=== PATIENT | male | born 1950 | race Caucasian/White ===

== ENCOUNTER 2024-05-06 10:33 | Emergency (ER) | payer MEDICARE, BC ==
[~2024-05-06] VITALS: Ht 180.3 cm; Wt 90.7 kg
[2024-05-06] MEDS ORDERED: ATOR10TA PO (10:48)
[2024-05-06] MEDS ORDERED: TADA5TAB2 PO (10:48)
[2024-05-06] MEDS ORDERED: DEXAMETHASONE SOD PHOSPHATE 10 MG INJ ONE (11:22)
[2024-05-06] MEDS ORDERED: FAMOTIDINE. 20 MG/2 ML VIAL IV ONE (11:23)
[2024-05-06] MEDS: FAMOTIDINE. 20 MG/2 ML VIAL IV ONE (11:29)
[2024-05-06] MEDS: DEXAMETHASONE SOD PHOSPHATE 4 MG INJ IV ONE (11:29)
[2024-05-06] MEDS ORDERED: PRED20TA PO (11:59)
[2024-05-06] MEDS ORDERED: FAMO-132 PO (11:59)
[2024-05-06 12:04] VITALS: BP 118/71; O2SAT 100
== END 2024-05-06 12:10 | disposition home or self-care (01) ==
LOC: ER 10:33
DX: T78.1XXA Other adverse food reactions, not elsewhere classified, initial encounter (principal); E78.00 Pure hypercholesterolemia, unspecified; Z79.899 Other long term (current) drug therapy; Z79.52 Long term (current) use of systemic steroids; Z60.2 Problems related to living alone; X58.XXXA Exposure to other specified factors, initial encounter
CPT/HCPCS: 99284; 96374; 96375; J1100; J3490; A4606; A4663